=== PATIENT | male | born 2000 | race Caucasian/White ===

== ENCOUNTER 2019-11-07 00:09 | Observation (INO) | payer OTHER ==
[~2019-11-07] VITALS: Ht 172.7 cm; Wt 83.6 kg
--- NOTE | 2019-11-07 01:30 | NUR ---
Patient admitted from ER via wheel chair and ambulates to the bed. Reports pain with swallowing 5/10 but denies need for pain med at this time. Speech clear. VSS. IVF's of LR begun at 75mls/hr. Orientated to room and call light. Encouraged to call for assist if feeling dizzy or faint. Skin pale warm and dry. Has IV to RAC 18 guage.
[2019-11-07 01:31] VITALS: BP 129/66; PULSE 62; TEMP 98.5
[2019-11-07] MEDS ORDERED: TYLENOL 500MG500 MG PO (03:27)
[2019-11-07] MEDS ORDERED: MUCINEX 60600 MG/TA1 (03:28)
[2019-11-07] MEDS ORDERED: MELATIN 3 MG-11 TAB (03:29)
--- NOTE | 2019-11-07 03:30 | NUR ---
Roxycodone reviewed and given for sharp throat pain when swallowing. Patient resting in bed.
[2019-11-07 04:20] VITALS: BP 128/53; PULSE 59; TEMP 97.4
--- NOTE | 2019-11-07 04:24 | NUR ---
Nurse woke patient for vitals. Afebrile. Reports yes to has been sleeping. States pain med helped with throat pain. Up to the bathroom.
[2019-11-07 07:07] VITALS: BP 129/61; PULSE 64; TEMP 97.2
[2019-11-07 11:38] VITALS: BP 129/43; PULSE 59; TEMP 97.9
[2019-11-07] MEDS ORDERED: OXYCODONE H5 MG/5 ML PO (12:24)
--- NOTE | 2019-11-07 14:30 | NUR ---
Throat pain improved with prn pain meds. Able to swallow po fluids better after meds. IV fluids infused. Afebrile. Dr. Salguero saw patient. Prescriptions given. Dismissed to home with friend.
== END 2019-11-07 14:30 | disposition home or self-care (01) ==
LOC: COL.ER 00:09 → SURG 00:51
PROVIDERS: ADMIT Otolaryngology
DX: B27.90 Infectious mononucleosis, unspecified without complication (principal); R59.9 Enlarged lymph nodes, unspecified
CPT/HCPCS: G0378; J1100; J2270; J7120